=== PATIENT | female | born 1990 | race Caucasian/White ===

== ENCOUNTER 2017-11-16 00:39 | Outpatient (CLI) | payer MEDICAID ==
[2017-11-16] MEDS: HYDROCODONE/APAP (5/325) TAB PO (03:56)
== END 2017-11-16 04:12 | disposition home or self-care (01) ==
LOC: OBT 00:39 → L-D 00:41 → OBT 04:12
DX: O62.9 Abnormality of forces of labor, unspecified (principal); Z3A.37 37 weeks gestation of pregnancy
CPT/HCPCS: 76815; 76817

== ENCOUNTER 2017-12-22 23:24 | Inpatient (IN) | payer MEDICAID ==
[2017-12-23] MEDS ORDERED: CEFAZOLIN 2 GM/50 ML (PMX) 50 ML IV (00:30)
[2017-12-23] MEDS ORDERED: CARBOPROST 250 MCG INJ IM ×2 (00:30→14:00)
[2017-12-23] MEDS ORDERED: OXYTOCIN 30 UNITS/LR 500 ML IV ×3 (00:30→14:00)
[2017-12-23] MEDS ORDERED: METHYLERGONOVINE 0.2 MG INJ IM ×2 (00:30→14:00)
[2017-12-23] MEDS ORDERED: MISOPROSTOL 200 MCG TAB PR ×2 (00:30→14:00)
[2017-12-23] MEDS: TERBUTALINE 1 MG/ML INJ SC (01:25)
[2017-12-23] MEDS: LACTATED RINGER'S 1,000 ML IV ×4 (01:25→23:51)
[2017-12-23] MEDS: BUTORPHANOL 2 MG INJ IV (01:35)
[2017-12-23 02:39] LABS: ADD MAN DIFF? NO
[2017-12-23 02:40] LABS: ABNORMAL IP MESSAGE 1; BASOPHILS % 0.5 % (0.0-2.0); EOSINOPHILS # 0.1 10^3/ul (0.0-0.5); EOSINOPHILS % 0.8 % (0.0-7.0); HEMATOCRIT 32.6 % (37.0-47.0); LYMPHOCYTES # 3.1 10^3/ul (0.8-2.9); LYMPHOCYTES % 35.3 % (15.0-51.0); MEAN CORPUSCULAR HEMOGLOBIN 30.1 pg (29.0-33.0); MEAN CORPUSCULAR HGB CONC 33.7 g/dl (32.0-37.0); MEAN CORPUSCULAR VOLUME 89.1 fl (82.0-101.0); MEAN PLATELET VOLUME 13.9 fl (7.4-10.4); MONOCYTE # 0.6 10^3/ul (0.3-0.9); MONOCYTES % 7.3 % (0.0-11.0); NEUTROPHIL # 4.9 10^3/ul (1.6-7.5); NEUTROPHILS % 55.9 % (39.0-77.0); PLATELET COUNT 173 10^3/UL (140-415); RED BLOOD COUNT 3.66 10^6/ul (4.20-5.40); RED CELL DISTRIBUTION WIDTH 14.8 % (11.5-14.5)
[2017-12-23 02:40] LABS: WHITE BLOOD COUNT 8.7 10^3/ul (4.8-10.8)
[2017-12-23 02:52] LABS: POSITIVE DIFF @See below
[2017-12-23 02:53] LABS: ADD UMIC YES; UR ASCORBIC ACID NEGATIVE (NEGATIVE); UR BACTERIA FEW /HPF (NONE SEEN); UR BILIRUBIN (Dip) NEGATIVE (NEGATIVE); UR BLOOD (Dip) NEGATIVE (NEGATIVE); UR BUDDING YEAST FEW /HPF (NONE SEEN); UR CLARITY SLIGHTLY CLOUDY (CLEAR); UR COLOR YELLOW (YELLOW); UR GLUCOSE (Dip) NEGATIVE (NEGATIVE); UR KETONES (Dip) 1+ mg/dL (NEGATIVE); UR LEUKOCYTE ESTERASE (Dip) NEGATIVE Leu/ul (NEGATIVE); UR MUCUS FEW /HPF (NONE SEEN); UR NITRITE (Dip) NEGATIVE (NEGATIVE); UR RBC 2 /HPF (0-5); UR SPECIFIC GRAVITY (Dip) 1.024 (1.003-1.030); UR SQUAMOUS EPITHELIAL CELL FEW /HPF (FEW); UR TOTAL PROTEIN (Dip) 1+ mg/dl (NEGATIVE); UR UROBILINOGEN (Dip) 1+ mg/dL (NEGATIVE); UR WBC 3 /HPF (0-5)
[2017-12-23 03:00] LABS: ALANINE AMINOTRANSFERASE 23 IU/L (13-69); ALBUMIN 3.2 g/dl (3.3-4.9); ALBUMIN/GLOBULIN RATIO 1.03; ALKALINE PHOSPHATASE 141 IU/L (42-121); ANION GAP 12 (8-16); ASPARTATE AMINO TRANSFERASE 30 IU/L (15-46); BILIRUBIN,INDIRECT 0.4 mg/dl (0-1.1); BILIRUBIN,TOTAL 0.4 mg/dl (0.2-1.3); BLOOD UREA NITROGEN 9 mg/dl (7-20); CALCIUM 9.1 mg/dl (8.4-10.2); CARBON DIOXIDE 21 mmol/L (21-31); CHLORIDE 109 mmol/L (97-110); CREATININE 0.52 mg/dl (0.44-1.00); GLUCOSE 84 mg/dl (70-220); INR 0.95; POTASSIUM 4.3 mmol/L (3.5-5.1); PROTIME 12.8 Sec (11.9-14.9); SODIUM 138 mmol/L (135-144); TOTAL PROTEIN 6.3 g/dl (6.1-8.1); URIC ACID 3.7 mg/dl (3.1-7.9)
[2017-12-23 03:01] LABS: PARTIAL THROMBOPLASTIN TIME 25.9 Sec (25.0-35.0)
[2017-12-23 04:58] LABS: HEPATITIS B SURFACE ANTIGEN NEGATIVE (NEGATIVE)
[2017-12-23] MEDS ORDERED: OXYTOCIN 30 UNITS/LR 500 ML BAG IV (07:00)
[2017-12-23] MEDS ORDERED: METHYLERGONOVINE 0.2 MG TAB PO (14:00)
[2017-12-23] MEDS ORDERED: LANOLIN 7 GM TUBE TOP (14:00)
[2017-12-23] MEDS ORDERED: NALOXONE (0.4 MG/ML) INJ IV (15:00)
[2017-12-23] MEDS ORDERED: DIPHENHYDRAMINE 50 MG INJ IV (15:00)
[2017-12-23] MEDS ORDERED: morphine 2 MG INJ IV (15:00)
[2017-12-23] MEDS ORDERED: BUPIVACAINE 0.75%/DEXT (SPINAL) 2 ML INJ (15:02)
[2017-12-23] MEDS ORDERED: morphine SULFATE/PF (10 MG/10 ML) INJ (15:02)
[2017-12-23] MEDS ORDERED: PHENYLephrine (100 MCG/ML) 5ML SYG (15:02)
[2017-12-23] MEDS ORDERED: OXYTOCIN 10 UNIT INJ (15:02)
[2017-12-23] MEDS ORDERED: ONDANSETRON 4 MG INJ (15:02)
[2017-12-23 16:07] LABS: AMPHETAMINE/METHAMPHETAMINE Negative (NEGATIVE); BARBITURATES Negative (NEGATIVE); BENZODIAZEPINES Negative (NEGATIVE); CANNABINOIDS Negative (NEGATIVE); COCAINE Negative (NEGATIVE); OPIATES Negative (NEGATIVE)
[2017-12-23] MEDS: KETOROLAC 30 MG INJ IV (16:23)
[2017-12-23] MEDS: OXYTOCIN 30 UNITS/LR 500 ML IV (16:27)
[2017-12-23 16:49] LABS: RAPID PLASMA REAGIN NONREACTIVE (NR)
[2017-12-23] MEDS: ONDANSETRON 4 MG INJ IV (17:24)
[2017-12-23] MEDS: DEXTROSE 5%-LR 1,000 ML IV ×2 (18:34→21:41)
[2017-12-23] MEDS: IBUPROFEN 800 MG TAB PO ×2 (18:34→22:00)
[2017-12-23] MEDS: OXYCODONE/ACETAMINOPHEN (5/325) TAB PO ×2 (18:35→22:00)
[2017-12-23] MEDS: SENNA/DOCUSATE NA (8.6MG/50MG) TAB PO (21:00)
[2017-12-24] MEDS: KETOROLAC 30 MG INJ IV ×2 (04:12→11:35)
[2017-12-24] MEDS: DEXTROSE 5%-LR 1,000 ML IV ×3 (05:41→21:41)
[2017-12-24] MEDS: IBUPROFEN 800 MG TAB PO ×3 (05:54→22:03)
[2017-12-24] MEDS: OXYCODONE/ACETAMINOPHEN (5/325) TAB PO ×4 (06:00→22:04)
[2017-12-24] MEDS: LACTATED RINGER'S 1,000 ML IV ×2 (06:06→16:22)
[2017-12-24 08:20] LABS: ADD MAN DIFF? NO
[2017-12-24 08:26] LABS: ABNORMAL IP MESSAGE 1; BASOPHILS % 0.3 % (0.0-2.0); EOSINOPHILS # 0.1 10^3/ul (0.0-0.5); EOSINOPHILS % 1.1 % (0.0-7.0); HEMATOCRIT 29.3 % (37.0-47.0); HEMOGLOBIN 9.8 g/dl (12.0-16.0); LYMPHOCYTES # 2.3 10^3/ul (0.8-2.9); MEAN CORPUSCULAR HEMOGLOBIN 29.9 pg (29.0-33.0); MEAN CORPUSCULAR HGB CONC 33.4 g/dl (32.0-37.0); MEAN CORPUSCULAR VOLUME 89.3 fl (82.0-101.0); MEAN PLATELET VOLUME 13.8 fl (7.4-10.4); MONOCYTE # 0.6 10^3/ul (0.3-0.9); MONOCYTES % 6.9 % (0.0-11.0); NEUTROPHIL # 6.1 10^3/ul (1.6-7.5); NEUTROPHILS % 66.4 % (39.0-77.0); PLATELET COUNT 148 10^3/UL (140-415); RED BLOOD COUNT 3.28 10^6/ul (4.20-5.40); RED CELL DISTRIBUTION WIDTH 14.5 % (11.5-14.5)
[2017-12-24 08:26] LABS: WHITE BLOOD COUNT 9.2 10^3/ul (4.8-10.8)
[2017-12-24 08:27] LABS: POSITIVE DIFF @See below
[2017-12-24] MEDS: SENNA/DOCUSATE NA (8.6MG/50MG) TAB PO ×2 (09:40→20:58)
[2017-12-24] MEDS ORDERED: HYDROCODONE/APAP (5/325) TAB PO (12:00)
[2017-12-25] MEDS: LACTATED RINGER'S 1,000 ML IV ×3 (04:38→16:30)
[2017-12-25] MEDS: OXYCODONE/ACETAMINOPHEN (5/325) TAB PO ×5 (05:39→22:00)
[2017-12-25] MEDS: IBUPROFEN 800 MG TAB PO ×3 (05:39→21:27)
[2017-12-25] MEDS: DEXTROSE 5%-LR 1,000 ML IV ×2 (05:41→13:41)
[2017-12-25] MEDS: SENNA/DOCUSATE NA (8.6MG/50MG) TAB PO ×2 (09:12→20:30)
[2017-12-25] MEDS: HYDROCODONE/APAP (5/325) TAB PO (17:50)
[2017-12-26] MEDS: OXYCODONE/ACETAMINOPHEN (5/325) TAB PO ×3 (03:21→12:40)
[2017-12-26] MEDS: IBUPROFEN 800 MG TAB PO ×2 (05:29→15:08)
[2017-12-26] MEDS: DIPHTH/TET/ACEL PERTUSS (ADULT) 0.5 ML VIAL IM* (09:00)
[2017-12-26] MEDS: MEASLES,MUMPS,RUBELLA VACCINE INJ SC* (09:00)
[2017-12-26] MEDS: SENNA/DOCUSATE NA (8.6MG/50MG) TAB PO (12:40)
== END 2017-12-26 16:50 | disposition home or self-care (01) | DRG 766 ==
LOC: OBT 23:24 → L-D 23:25 → PP1 12-23 18:12
PROC: 10D00Z1 Extraction of Products of Conception, Low, Open Approach (ICD-10-PCS; principal; 2017-12-23)
PROC: 3E0R3GC Introduction of Other Therapeutic Substance into Spinal Canal, Percutaneous Approach (ICD-10-PCS; 2017-12-25)
DX: O34.219 Maternal care for unspecified type scar from previous cesarean delivery (principal); Z3A.37 37 weeks gestation of pregnancy; Z37.0 Single live birth; N73.6 Female pelvic peritoneal adhesions (postinfective); O89.4 Spinal and epidural anesthesia-induced headache during the puerperium
CPT/HCPCS: 36415; 80053; 80307; 81001; 82962; 84560; 85025; 85610; 85730; 86592; 86850; 86900; 86901; 87340; 99464